=== PATIENT | male | born 1970 | race Caucasian/White ===

== ENCOUNTER 2022-10-05 17:04 | Emergency (ER) | payer BC, SELFPAY ==
--- NOTE | ~2022-10-05 | XR_ITS ---
EXAMINATION: XR chest 1V portable INDICATION: Epigastric pain TECHNIQUE: Portable AP chest at 1932 hours COMPARISON: 05/21/2015 FINDINGS: The lungs are free of acute opacities. No pleural effusion or pneumothorax. The cardiomedia stinal silhouette is normal. 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 IMPRESSION: 1. No acute cardiopulmonary abnormality. Reviewed, dictated and finalized at location [facility] [employer]
[2022-10-05 17:13] VITALS: BP 167/114; PULSE 90; RESP 18; TEMP 36.4; O2SAT 97
--- NOTE | 2022-10-05 19:17 | ECG_ITS ---
Measurements Intervals [place] Rate: 84 P: 40 AR: 158 QRS: 8 QRSD: 92 T: 34 QT: 384 QTc: 456 Interpretive Statements SINUS RHYTHM BASELINE ARTIFACT- V1 NORMAL ECG NO PREVIOUS ECG AVAILABLE FOR COMPARISON Electronically Signed On 10-06-2022 6:36:02 [employer]ATER T[employer]AT[employer] TECHNICIAN by Marcelo Plaza D.O.
[2022-10-05 20:08] LABS: Basophils Absolute Auto 0.1 K/mm3 (0.0-0.1); Basophils Percent Auto 0.7 % (0.2-1.2); Eosinophils Percent Auto 0.4 % (0-4.4); Hematocrit 42.7 % (42.0-52.0); Hemoglobin 14.8 g/dL (14.0-18.0); Immature Granulocyte Absolute 0.03 K/mm3 (0.00-0.031); Immature Granulocyte Percent A 0.4 % (0-0.5); Lymphocytes Absolute Auto 2.59 K/mm3 (0.9-3.2); Lymphocytes Percent Auto 30.5 % (18.3-44.2); Mean Corpuscular HGB Conc 34.7 g/dl (32-36); Mean Corpuscular Hemoglobin 31.4 pg (26-34); Mean Corpuscular Volume 90.7 fl (80-100); Mean Platelet Volume 10.3 fl (7.4-10.4); Monocytes Absolute Auto 0.7 K/mm3 (0.1-0.6); Monocytes Percent Auto 7.8 % (2.6-8.5); Neutrophils Absolute Auto 5.1 K/mm3 (1.3-6.7); Neutrophils Percent Auto 60.2 % (45.5-73.1); Platelet Count Result 215 k/mm3 (150-375); Red Blood Count 4.71 M/mm3 (4.6-6.20); Red Cell Distribution Width 12.4 % (11.5-14.5); White Blood Count 8.5 K/mm3 (4.5-10.0)
[2022-10-05 20:22] LABS: Alanine Aminotransferase 48 U/L (6-50); Albumin Level 4.6 g/dL (3.5-5.1); Alkaline Phosphatase 59 U/L (38-126); Aspartate Amino Transferase 36 U/L (17-59); Bilirubin,Total 0.5 mg/dL (0.2-1.3); Blood Urea Nitrogen 14 mg/dL (9-20); Calcium 9.1 mg/dL (8.4-10.2); Carbon Dioxide 26 mmol/L (22-30); Chloride 100 mmol/L (98-107); Estimated CRCL calculation 115 ml/min; Estimated Glomerular Filt Rate > 60; Glucose 123 mg/dL (65-110); Potassium 3.8 mmol/L (3.4-5.0)
--- NOTE | 2022-10-05 20:25 | ED.GENADULT ---
HPI - General Adult General Chief complaint: Unspecified Stated complaint: episode of body discomfort Time Seen by Provider: 10/05/22 18:07 Source: patient Mode of arrival: ambulatory Limitations: no limitations History of Present Illness HPI narrative: 52-year-old male presents today with concerns of an odd feeling in the epigastric region that started around 1:00. Patient states is very hard to describe it as a discomfort and a nauseated feeling that lasted 30 to 40 minutes. States he still does not feel like he is back to normal. Patient states it was not chest pain but epigastric pain. He denies pain radiating anywhere denies any diaphoresis. Denies any nausea, vomiting, diarrhea. He was sitting working when this episode happened. About an hour before he had walked a mile with his dogs without issue. Patient states he may be feels a little bit anxious now but does not have any history of anxiety or depression. Related Data Allergies Allergy/AdvReac Type Severity Reaction Status Date / Time No Known Allergies Allergy Unknown Unverified 05/21/15 21:39 Review of Systems Review of Systems: CONSTITUTIONAL: Denies fever, chills, or sweats. EYES: Denies visual changes, redness, or discharge. ENT: Denies rhinorrhea, congestion, sore throat, or otalgia. CARDIOVASCULAR: Denies chest pain, palpitations, or edema. RESPIRATORY: Denies cough or dyspnea. GASTROINTESTINAL: Epigastric discomfort/nausea. Denies vomiting, or diarrhea. SKIN: Denies rash or itching. MUSCULOSKELETAL: Denies back pain, joint pain, or myalgia. PSYCHIATRIC: Denies anxiety or depression. Exam Narrative: GENERAL: Well-appearing, well-nourished, and in no acute distress. HEAD: Normocephalic, atraumatic. EYES: PERRLA and EOMI. NECK: Supple. No adenopathy or masses. No carotid bruits or JVD CHEST: Clear to auscultation. No respiratory distress. No wheezes rales or rhonchi. No chest tenderness on palpation HEART: Regular rate and rhythm. No murmur heard. Normal peripheral pulses. ABDOMEN: Soft, nontender, nondistended, normal active bowel sounds. EXTREMITIES: Normal range of motion. No edema. SKIN: Warm, dry, no rash. Course Course Emergency Course: Findings discussed with patient. He is aware that at this time cardiac work-up is negative. Plan follow-up with primary for further management. Vital Signs Vital signs: Vital Signs Temperature 97.6 F 10/05/22 17:13 Pulse Rate 90 10/05/22 17:13 Respiratory Rate 18 10/05/22 17:13 Blood Pressure 167/114 H 10/05/22 17:13 Pulse Oximetry 97 10/05/22 17:13 Oxygen Delivery Room Air 10/05/22 17:13 Temperature 97.6 F 10/05/22 17:13 Pulse Rate 78 10/05/22 20:52 Respiratory Rate 20 10/05/22 20:52 Blood Pressure 145/94 H 10/05/22 20:52 Pulse Oximetry 100 10/05/22 20:52 Oxygen Delivery Room Air 10/05/22 17:13 Medical Decision Making MDM Narrative Medical decision making narrative: 52-year-old male HPI as noted. Differentials include nausea, TN, epigastric pain. Work-up to include CBC, CMP, troponin, EKG, and chest x-ray shows no cardiopulmonary abnormalities. Patient's discomfort started at 1. Troponin is negative. Will discharge home with plan follow-up with primary. Medical Records Medical records reviewed: Yes I reviewed the external patient's medical records. Vital Signs Vital Signs: Vital Signs Temperature 97.6 F 10/05/22 17:13 Pulse Rate 90 10/05/22 17:13 Respiratory Rate 18 10/05/22 17:13 Blood Pressure 167/114 H 10/05/22 17:13 Pulse Oximetry 97 10/05/22 17:13 Oxygen Delivery Room Air 10/05/22 17:13 Temperature 97.6 F 10/05/22 17:13 Pulse Rate 78 10/05/22 20:52 Respiratory Rate 20 10/05/22 20:52 Blood Pressure 145/94 H 10/05/22 20:52 Pulse Oximetry 100 10/05/22 20:52 Oxygen Delivery Room Air 10/05/22 17:13 Lab Data Lab results reviewed: Yes I reviewed the patient's lab results. Result diagrams: 10/05
[2022-10-05 20:34] LABS: Troponin I < 0.012 ng/mL (0.000-0.034)
[2022-10-05 20:35] LABS: Anion Gap 14 mmol/L (8-16); Sodium 140 mmol/L (137-145)
[2022-10-05 20:52] VITALS: BP 145/94; PULSE 78; RESP 20; O2SAT 100
== END 2022-10-05 20:53 | disposition home or self-care (01) ==
PROVIDERS: Emergency Provider Nurse Practitioner Family; PCP Family Medicine
DX: I10 Essential (primary) hypertension (principal)
CPT/HCPCS: 36415; 71045; 80053; 84484; 85025; 93005; 99284

== ENCOUNTER 2025-11-21 08:19 | Outpatient (CLI) | payer BC, SELFPAY ==
--- OUTSIDE RECORDS SUMMARY | 2025-11-21 08:26 | XMS_ITS | Clinical Summary ---
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 Name Role Phone Eri Johnston Primary Care Provider [phone] Allergies No known active allergies Medications blood glucose diagnostic (glucose blood) stripIndications:In adequately controlled diabetes mellitus (HCC) Test blood sugar once to twice daily 100 each 5 5 11/23/19 26 Active blood-glucose meter kitIndications:Inad equately controlled diabetes mellitus (HCC) Test blood sugar once to twice daily 1 kit 5 Active lancets miscIndications:Jordyn dequately controlled diabetes mellitus (HCC) Test blood sugar once to twice daily 100 each 5 5 Active alcohol swabs pads, medicatedIndication s:Inadequately controlled diabetes mellitus (HCC) Test blood sugar once to twice daily 100 each 5 5 Active olmesartan-hydrochl orothiazide (BENICAR HCT) 40-25 mg per tabletIndications:B enign hypertension TAKE 1 TABLET DAILY 90 tablet 3 5 Active metoprolol XL (TOPROL-XL) 25 mg extended release tabletIndications:B enign hypertension Take 1 tablet (25 mg total) by mouth daily 90 tablet 3 5 04/04/20 26 Active apixaban (ELIQUIS) 5 mg tabletIndications:H istory of DVT (deep vein thrombosis) Take 1 tablet (5 mg total) by mouth 2 (two) times a day 10 mg BID x 5 days, then 5 MG BID. 180 tablet 3 5 04/04/20 Active metFORMIN (GLUCOPHAGE) 1,000 mg tabletIndications:T ype 2 diabetes mellitus with hyperglycemia, without long-term current use of insulin (HCC) Take 1 tablet (1,000 mg total) by mouth 2 (two) times a day with meals 180 tablet 3 5 04/04/20 Active atorvastatin (LIPITOR) 10 mg tabletIndications:M ixed hyperlipidemia Take 1 tablet (10 mg total) by mouth daily 90 tablet 3 5 04/04/20 Active Jardiance 10 mg tabletIndications:T ype 2 diabetes mellitus with hyperglycemia, without long-term current use of insulin (HCC) TAKE 1 TABLET DAILY 90 tablet 1 Active Active Problems Problem Noted Date Diagnosed Date Health maintenance examination 04/04/2025 Overview (04/04/2025): PMH: 04/04/25 Last colonoscopy/cologuard: cologuard 03/19/25 Last Hep C: Last PSA: 11/18/24 Last tdap:06/10/2016 Last Prevnar/pneumovax:prevnar 20 04/04/25 Last Shingrix:completed Last eye exam: 2023 Assessment & Plan (04/04/2025 12:04 PM CDT): PMH: 04/04/25 Last colonoscopy/cologuard: cologuard 03/19/25 Last Hep C: Last PSA: 11/18/24 Last tdap:06/10/2016 Last Prevnar/pneumovax:prevnar 20 04/04/25 Last Shingrix:completed Last eye exam: 2023 Type 2 diabetes mellitus wit h hyperglycemia, without long-term current use of insulin 04/04/2025 Assessment & Plan (07/13/2025 11:02 AM CDT): Chronic, improving, A1c currently 6.9. Goal is less than 7. Sugar readings have improved. Patient will continue Jardiance and metformin. Patient will continue with dietary changes and exercise. Follow-up in November with repeat labs Orders: Hemoglobin A1c; Future Comprehensive metabolic panel; Future Lipid panel; Future Assessment & Plan (04/04/2025 12:04 PM CDT): Uncontrolled. Patient will recheck A1c and will adjust medication accordingly. Orders: empagliflozin (JARDIANCE) 10 mg tablet; Take 1 tablet (10 mg total) by mouth daily metFORMIN XR (GLUCOPHAGE XR) 750 mg 24 hr tablet; Take 1 tablet (750 mg total) by mouth 2 (two) times a day Class 2 severe obesity due t o excess calories with serious comorbidity and body mass index (BMI) of 36.0 to 36.9 in adult 04/04/2025 Assessment & Plan (07/13/2025 11:02 AM CDT): Improving. Educated patient on healthy diet/exercise plan. Exercise 150min-300min per week of moderate intensity. Diet: good, healthy protein (eggs, nuts, peanut butter, chicken, fish, turkey, less pork/beef), lots of vegetables, less carbohydrates and less sugar. Assessment & Plan (04/04/2025 12:04 PM CDT): Educated patient on healthy diet/exercise plan. Exercise 150min-300min per week of moderate intensity. Diet: good, healthy protein (eggs, nuts, peanut butter, chicken, fish, turkey, less pork/beef), lots of vegetables, less carbohydrates and less sugar. History of DVT (deep vein thrombosis) 04/04/2025 Assessment & Plan (04/04/2025 12:04 PM CDT): Stable on Eliquis Orders: apixaban (ELIQUIS) 5 mg tablet; Take 1 tablet (5 mg total) by mouth 2 (two) times a day 10 mg BID x 5 days, then 5 MG BID. Obstructive sleep apnea hypopnea, mild Assessment & Plan (04/04/2025 12:04 PM CDT): Primary hypertension 08/24/2019 Assessment & Plan (07/13/2025 11:02 AM CDT): Chronic, stable, continue metformin and Benicar Orders: Hemoglobin A1c; Future Comprehensive metabolic panel; Future Lipid panel; Future Assessment & Plan (04/04/2025 12:04 PM CDT): Chronic, stable, with symptoms of hypotension. Reduce metoprolol from 50 mg to 25 mg. Follow-up in 3 months Orders: Lipid panel; Future Hemoglobin A1c; Future Resolved Problems Problem Noted Date Diagnosed Date Resolved Date Gastritis without bleeding 01/11/2014 0 04/04/2025 Irritable bowel syndrome without diarrhea 01/11/2014 04/04/2025 Helicobacter pylori (H. pylo ri) as the cause of diseases classified elsewhere 01/11/2014 025 Immunizations Immunization Administration Dates Next Due Hep A, Adult 04/04/2025,05/22/2016 Influenza, Quadrivalent, Blanca l Culture-based MDCK, Preservative Free, Antibiotic Free, Intramuscular 09/17/2018 Influenza, Quadrivalent, Spl it, Intramuscular 12/07/2013 Influenza, Quadrivalent, Spl it, Preservative Free, Intramuscular 10/04/2023,10/22/2021 Influenza, Unspecified 09/08/2024(Deferr ed: Patient decision),11/11/2022(Deferred: Patient Refused),10/23/2022(Deferred: Patient Refused) Pfizer SARS-CoV-2 Monovalent Vaccination (12+ Yrs) PURPLE 12/02/2021 Pneumococcal Conjugate Pcv20 04/04/2025 Td, Unspecified 07/29/1983 Tdap 06/10/2016 Typhoid Inactivated 05/22/2016 ZOSTER Recombinant 10/04/2023,10/22/2021 Surgical History Surgery Date Site/Laterality Comments ESOPHAGOGASTRODUODENOSCOPY HERNIA REPAIR as a child REPAIR TENDONS FOOT child COLONOSCOPY Medical History Medical History Date Comments Helicobacter pylori (H. pylo ri) as the cause of diseases classified elsewhere 01/11/2014 Irritable bowel syndrome without diarrhea 2013 Gastritis without bleeding 01/11/2014 Family History Medical History Relation Name Comments Diabetes Brother Colon cancer Father Dementia Father Diabetes Father Heart disease Father Hypertension Mother Relation Name Status Comments Brother Alive Father Maternal Grandfather Maternal Grandmother Mother Paternal Grandfather Paternal Grandmother Sister Alive Social History Tobacco Use Types Packs/Day Years Used Date Smoking Tobacco: Never Tobacco Cessation:Counseling Given: Not Answered Alcohol Use Standard Drinks/Week Comments Never 0 (1 standard drink = 0.6 oz pur e alcohol) AUDIT-C Answer Date Recorded Q1: How often do you have a drink containing alcohol? Never 04/04/2025 Q2: How many drinks containi ng alcohol do you have on a typical day when you are drinking? Patient does not drink Q3: How often do you have si x or more drinks on one occasion? Never 04/04/2025 PHQ-2 Answer Date Recorded PHQ-2 Total Score (If total score is 3 or more points, staff should administer the PHQ-9) 0 07/13/2025 Sex and Gender Information Value Date Recorded Sex Assigned at Not on file Legal Sex Male 2:15 AM JACK PRIZER Gender Identity Not on file Sexual Orientation Not on file Last Filed Vital Signs Vital Sign Reading Time Taken Comments Blood Pressure 118/85 07/13/2025 10:35 AM CDT Pulse 73 07/13/2025 10:35 AM CDT Temperature 36.2 C (97.2 F) 07/13/2025 10:35 AM CDT Respiratory Rate 16 07/13/2025 10:35 AM CDT Oxygen Saturation 97% 07/13/2025 10:35 AM CDT Inhaled Oxygen Concentration - - Weight 115.7 kg (255 lb) 07/13/2025 10:35 AM CDT Height 177.8 cm (5' 10) 07/13/2025 10:35 AM CDT Body Mass Index 36.59 07/13/2025 10:35 AM CDT Plan of Treatment Health Maintenance Due Date Last Done Comments Hepatitis C Screening 1970 Dilated Eye Exam 1969 Hepatitis B Screening 1987 Covid-19 Vaccine (2024-12 6 season) 2025 12/02/2021, 03/09/2021, 02/15/2021 Influenza Vaccine (#1) 2025 3, 10/22/2021, 09/17/2018, Additional history exists Albumin Creatinine Ratio, Urine 11/18/2025 4, 10/12/2023 eGFR 11/18/2025 11/18/2024, 10/12/2023 Hemoglobin A1C 01/12/2026 07/12/2025, 03/22, 11/18/2024 Foot Exam 04/04/2026 04/04/2025 Regular Well Visit/Exam 18-64 04/04/2026, 11/11/2022, 11/11/2022, Additional history exists DTaP/Tdap/Td Vaccine (2 - Td or Tdap) 06/10/2026 06/10/2016, 07/29/1983 Lipid Panel 07/12/2026 07/12/2025, 03/22, 11/18/2024, Additional history exists Depression Screening 07/13/2026 07/13/2025, 04/04/2025, 07/17/2024, Additional history exists Prostate Cancer Screening-PSA 11/18/2026, 10/12/2023, 08/24/2019 Colon Cancer Screening-DNA Stool 03/09/2028 03/09/20, 12/22/2021 Zoster Vaccine Completed 10/04/2023, 10/22/2021 Colon Cancer Screening-FIT Discontinued 03/09/2025, Pneumococcal vaccine <65 Completed 04/04/2025 Procedures Procedure Name Priority Date/Time Associated Diagnosis Comments HEMOGLOBIN A1C Routine 07/12/2025 10:06 AM CDT Type 2 diabetes mellitus with hyperglycemia, without long-term current use of insulin (HCC) Mixed hyperlipidemia LIPID PANEL Routine 07/12/2025 10:06 AM CDT Type 2 diabetes mellitus with hyperglycemia, without long-term current use of insulin (HCC) Mixed hyperlipidemia STOOL DNA COLOGUARD Routine 03/09/2025 11:50 AM CDT Screening for colon cancer ALBUMIN CREATININE RATIO, URINE Routine 11/18/2024 10:51 AM JACK PRIZER Benign hypertension EGFR Routine 11/18/2024 9:30 AM JACK PRIZER Benign hypertension Impaired fasting blood sugar PSA SCREEN Routine 11/18/2024 9:30 AM JACK PRIZER Screening for prostate cancer from Last 3 Months or Most Recently Relevant to Health Maintenance Results * (ABNORMAL) Hemoglobin A1c (07/12/2025 10:06 AM CDT) Hgb A1C 6.9(H) 4.0 - 5.6 % Comment:Testing performed by : [address] [address] Estimated Average Glucose 151 mg/dL KELLI LOPEZ Comment: The ADA recommends reporting an estimated Average Glucose (eAG) with all Hemoglobin A1c results using the equation derived from a study of 507 normal and diabetic adults. Minority populations were underrepresented and children were not included. (Diabetes Care 31:7777-6366, 2008). The eAG is not equivalent to a fasting glucose. Testing performed by: [address] [address] Blood 07/12/2025 10:0 6 AM CDT 07/12/2025 10:21 AM CDT us Eri RANGEL LAB BLOOD ORDERABLES Final Res ult KELLI [address] [facility] Department [place] [address] * (ABNORMAL) Lipid panel (07/12/2025 10:06 AM CDT) Cholesterol 150 30 - 199 mg/dL Comment: Interpretive Data Ages < or = 19 years Acceptable: <170 mg/dL Borderline high: 170-199 mg/dL High: >or= 200 mg/dL Ages > or = 20 years Desirable: <200 mg/dL Borderline high: 200-239 mg/dL High: >or= 240 mg/dL Literature References: 1. Expert Panel on Integrated Guidelines for Cardiovascular Health and Risk Reduction in Children and Adolescents. Pediatrics 2011;128:S213 2. NCEP Expert Panel. Circulation 2004;110:227 Current Interpretive Data was last revised on 2018. Testing performed by: [address] [address] Triglycerides 150(H) <=149 mg/dL KELLI Comment: Interpretive Data Ages < or = 9 years Acceptable: <75 mg/dL Borderline high: 75-99 mg/dL High: >or= 100 mg/dL Ages 10 to 20 years Acceptable: <90 mg/dL Borderline high: 90-129 mg/dL High: >or= 130 mg/dL Ages > or = 20 years Desirable: <150 mg/dL Borderline high: 150-199 mg/dL High: 200-499 mg/dL Very high: >or= 499 mg/dL Literature References: 1. Expert Panel on Integrated Guidelines for Cardiovascular Health and Risk Reduction in Children and Adolescents. Pediatrics 2011;128:S213 2. NCEP Expert Panel. Circulation 2004;110:227 Current Interpretive Data was last revised on 2018. Testing performed by: [address] [address] HDL 31(L) >=40 mg/dL KELLI Comment: Interpretive Data Ages < or = 19 years Acceptable: >45 mg/dL Borderline low: 40-45 mg/dL Low: <40 mg/dL Ages > or = 20 years Desirable: >or= 60 mg/dL Low: <40 mg/dL Literature References: 1. Expert Panel on Integrated Guidelines for Cardiovascular Health and Risk Reduction in Children and Adolescents. Pediatrics 2011;128:S213 2. NCEP Expert Panel. Circulation 2004;110:227 Current Interpretive Data was last revised on 2018. Testing performed by: [address] [address] LDL, calculated 92 <=129 mg/dL KELLI Comment: Interpretive Data Ages < or = 19 years Acceptable: <110 mg/dL Borderline high: 110-129 mg/dL High: >or= 130 mg/dL Ages > or = 20 years Optimal: <100 mg/dL Near optimal: 100-129 mg/dL Borderline high: 130-159 mg/dL High: >160 mg/dL Calculated using the Isabel LDL-C estimating equation. This equation was implemented on 2024. Prior to this date LDL-C was estimated using the Friedewald equation. Literature References: 1. Expert Panel on Integrated Guidelines for Cardiovascular Health and Risk Reduction in Children and Adolescents. Pediatrics 2011;128:S213 2. NCEP Expert Panel. Circulation 2004;110:227 3. Isabel M et al. JOSAFAT Cardiol. 2020 March 22;5(5):540-548. doi: 10.1001/jamacardio.2020.0013 Current Interpretive Data was last revised on 2024. Testing performed by: [address] [address] Non-HDL Cholesterol 119 mg/dL KELLI Comment: Interpretive Data Ages < or = 19 years Acceptable: <120 mg/dL Borderline high: 120-144 mg/dL High: >145 mg/dL Ages > or = 20 years When triglycerides are >200 mg/dL, Non-HDL cholesterol is a secondary target of therapy with treatment goals that are 30 mg/dL greater than the LDL cholesterol target. Literature References: 1. Expert Panel on Integrated Guidelines for Cardiovascular Health and Risk Reduction in Children and Adolescents. Pediatrics 2011;128:S213 2. NCEP Expert Panel. Circulation 2004;110:227 Current Interpretive Data was last revised on 2018. Testing performed by: [facility], [address] [place] [address]., [address] Chol/HDL ratio 5 KELLI Comment:Testing performed by : [address] [address] Blood 07/12/2025 10:0 6 AM CDT 07/12/2025 10:19 AM CDT us Eri RANGEL LAB BLOOD ORDERABLES Final Res ult KELLI [address] [facility] Department [place] [address] * Stool DNA - Cologuard (03/09/2025 11:50 AM CDT) Pathologist [facility] Stool DNA - Cologuard Negative Negative [facility] (CLIA #:[id number]) Comment: The Cologuard (TM) test was performed on this specimen. NEGATIVE TEST RESULT. A negative Cologuard result indicates a low likelihood that a colorectal cancer (CRC) or advanced adenoma (adenomatous polyps with more advanced pre-malignant features) is present. The chance that a person with a negative Cologuard test has a colorectal cancer is less than 1 in 1500 (negative predictive value >99.9%) or has an advanced adenoma is less than 5.3% (negative predictive value 94.7%). These data are based on a prospective cross-sectional study of 10,000 individuals at average risk for colorectal cancer who were screened with both Cologuard and colonoscopy. (Leslye Brannon et al, N Engl J Med 2014;370(14):1286- 1297) The normal value (reference range) for this assay is negative. COLOGUARD RE-SCREENING RECOMMENDATION: Periodic colorectal cancer screening is an important part of preventive healthcare for asymptomatic individuals at average risk for colorectal cancer. Following a negative Cologuard result, the [place] [employer] and U.S. Multi-Society Task Force screening guidelines recommend a Cologuard re-screening interval of 3 years. References: [place] [employer] Guideline for Colorectal Cancer Screening: https://www.cancer.org/cancer/lgmfs-vkcwjv-usnqyz/ecszeqpyk-gqyfdmfdx-ighbgnq/ac s-rec ommendations.html.; Fabrizio DK, Lewis CR, Gamal BurtK, Colorectal Cancer Screening: Recommendations for Physicians and Patients from the U.S. Multi-Society Task Force on Colorectal Cancer Screening , Am J Gastroenterology 2017; 112:4508-2009. TEST DESCRIPTION: Composite algorithmic analysis of stool DNA-biomarkers with hemoglobin immunoassay. Quantitative values of individual biomarkers are not reportable and are not associated with individual biomarker result reference ranges. Cologuard is intended for colorectal cancer screening of adults of either sex, 45 years or older, who are at average-risk for colorectal cancer (CRC). Cologuard has been approved for use by the U.S. FDA. The performance of Cologuard was established in a cross sectional study of average-risk adults aged 50-84. Cologuard performance in patients ages 45 to 49 years was estimated by sub-group analysis of near-age groups. Colonoscopies performed for a positive result may find as the most clinically significant lesion: colorectal cancer [4.0%], advanced adenoma (including sessile serrated polyps greater than or equal to 1cm diameter) [20%] or non- advanced adenoma [31%]; or no colorectal neoplasia [45%]. These estimates are derived from a prospective cross-sectional screening study of 10,000 individuals at average risk for colorectal cancer who were screened with both Cologuard and colonoscopy. (Leslye Echavarria al, N Engl J Med 2014;370(14):6814-3661.) Cologuard may produce a false negative or false positive result (no colorectal cancer or precancerous polyp present at colonoscopy follow up). A negative Cologuard test result does not guarantee the absence of CRC or advanced adenoma (pre-cancer). The current Cologuard screening interval is every 3 years. ([place] [employer] and U.S. Multi-Society Task Force). Cologuard performance data in a 10,000 patient pivotal study using colonoscopy as the reference method can be accessed at the following location: www.[employer]ium/results. Additional description of the Cologuard test process, warnings and precautions can be found at www.[employer]. Stool 03/09/2025 11:5 0 AM CDT 03/10/2025 11:13 AM CDT Haim Peng MD LAB BODY FLUIDS AND STOOLS ORDERABLES Final Result [facility] (CLIA #:[id number]) [address] [place] [address] * Albumin Creatinine Ratio, Urine (11/18/2024 10:51 AM JACK PRIZER) Albumin Ur 38.5 mg/L Comment: Interpretive Data No reference range established. Current interpretive data was last revised 2019. Testing performed by: [address] [address] Creatinine Ur 288.0 mg/dL KELLI LOPEZ Comment: Interpretive Data No reference range established. Current interpretive data was last revised 2019. Testing performed by: [address] [address] Albumin Creatinine Ratio, Ur 13 1 - 29 mg/g KELLI LOPEZ Comment:Testing performed by : [address] [address] Urine 11/18/2024 10:5 1 AM JACK PRIZER 11/18/2024 1:49 PM JACK PRIZER Haim Peng MD LAB URINE ORDERABLES Final Result Performing Organization Address [facility] Co de Phone Number KELLI [address] [place] [address] * eGFR (11/18/2024 9:30 AM JACK PRIZER) eGFR >90 >=60 mL/min/1. 73 m2 Comment: Interpretive Data Reference Interval Normal >/= 90 mL/min/1.73m2 Mildly decreased* 60 - 89 mL/min/1.73m2 Mildly to moderately decreased 45 - 59 mL/min/1.73m2 Moderately to severely decreased 30 - 44 mL/min/1.73m2 Severely decreased 15 - 29 mL/min/1.73m2 Kidney Failure < 15 mL/min/1.73m2 *Relative to young adult level Estimated glomerular filtration rate is determined by the 2020 CKD-EPI equation recommended by the National Kidney Foundation (A Unifying Approach to GFR Estimation: Recommendations of the NKF-ASK Task Force on Reassessing the Inclusion of Race in Diagnosing Kidney Disease, JASN 2020). The CKD-EPI equation should not be used for patients with unstable renal function and has not been validated in children and those over 70. Current interpretive data was last reviewed 2021. Testing performed by: [facility], [address] [place] [address]., [address] Blood 11/18/2024 9:30 AM JACK PRIZER 11/18/2024 10:29 AM JACK PRIZER Haim Peng MD LAB BLOOD ORDERABLES Final Result Performing Organization Address City/[facility]/ZIP Co de Phone Number KELLI [address] [place] [address] * PSA screen (11/18/2024 9:30 AM JACK PRIZER) PSA-Total 0.61 <=3.90 ng/mL Comment: Interpretive Data AGE SEX REFERENCE INTERVAL 0 minutes-150 years Female None 0 minutes-49 years Male None 50-59 years Male 0-3.90 60-69 years Male 0-5.40 70-79 years Male 0-6.20 80-150 years Male 0-6.20 The Grace PSA Total assay procedure was used. Results from different manufacturers or methods may not be comparable. Serial testing should be performed using the same method. Current interpretive data last revised 22. Testing performed by: [facility], [address] [place] [address]., [id number] Blood 11/18/2024 9:30 AM JACK PRIZER 11/18/2024 10:29 AM JACK PRIZER Haim Peng MD LAB BLOOD ORDERABLES Final Result Performing Organization Address City/State/ZIP Co nc Phone Number [facility] [address] [facility] Department [place] [address] from Last 3 Months or Most Recently Relevant to Health Maintenance Insurance [employer] ACCESS CHOICE [employer] ACCESS CHOICE Care Teams Plant Pathology Teacher Relationship Specialty Start Date End Date Eri Johnston PA [address] [place] [address] PCP - General Family Medicine 04/04/25
[2025-11-21 09:31] LABS: Hemoglobin A1C 6.9 % (<5.7)
[2025-11-21 09:32] LABS: Alanine Aminotransferase 27 U/L (6-50); Albumin Level 4.1 g/dL (3.5-5.1); Alkaline Phosphatase 51 U/L (38-126); Anion Gap 7 mmol/L (4-12); Aspartate Amino Transferase 31 U/L (17-59); Bilirubin,Total 0.6 mg/dL (0.2-1.3); Blood Urea Nitrogen 17 mg/dL (9-20); Calcium 9.0 mg/dL (8.4-10.2); Carbon Dioxide 27 mmol/L (22-30); Chloride 105 mmol/L (98-107); Cholesterol 160 mg/dL (0-200); Estimated Glomerular Filt Rate > 60; Glucose 129 mg/dL (65-110); HDL Direct 29 mg/dL; Potassium 3.8 mmol/L (3.4-5.0); Sodium 139 mmol/L (137-145); Total Protein 7.1 g/dL (6.3-8.2); Triglycerides 130 mg/dL (<150)
[2025-11-21 10:05] LABS: Hepatitis B Surface Antigen Negative (Negative)
[2025-11-21 10:11] LABS: Hepatitis B Core IgM Result Negative (Negative)
[2025-11-21 10:23] LABS: Hepatitis B Surface Anti Res Negative
== END 2025-11-21 08:20 | disposition home or self-care (01) ==
PROVIDERS: PCP Physician Assistant; Visit Provider Physician Assistant
DX: E11.65 Type 2 diabetes mellitus with hyperglycemia (principal); I10 Essential (primary) hypertension; E78.5 Hyperlipidemia, unspecified
CPT/HCPCS: 36415; 80053; 80061; 83036; 86705; 86706; 86803; 87340